=== PATIENT | female | born 2000 | race Caucasian/White ===

== ENCOUNTER 2019-04-15 03:15 | Emergency (ER) | payer SELFPAY ==
[~2019-04-15] VITALS: Wt 57.2 kg
[2019-04-15 03:18] VITALS: BP 115/60; PULSE 55; RESP 18
== END 2019-04-15 04:18 | disposition left against medical advice (07) ==
LOC: FTE 03:15
DX: Z53.21 Procedure and treatment not carried out due to patient leaving prior to being seen by health care provider (principal)